=== PATIENT | male | born 1980 | race American Indian/Alaskan Native ===

== ENCOUNTER 2017-12-23 09:55 | Outpatient (CLI) | payer OTHER ==
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
== END 2017-12-23 09:56 | disposition home or self-care (01) ==
LOC: CT 09:55
PROVIDERS: ATTEND Family Medicine
DX: G50.0 Trigeminal neuralgia (principal)
CPT/HCPCS: 70450